=== PATIENT | male | born 1955 | race Caucasian/White ===

== ENCOUNTER → 2019-03-22 | Day surgery (SDC) | payer OTHER ==
[~2019-03-22] MED LIST: Lactated Ringers 1,000 ML IV SCH; Propofol 200 MG/20 ML SDV IV ONE
[2019-03-22 08:10] VITALS: BP 118/58
--- NOTE | 2019-03-25 09:52 | OR ---
DATE OF OPERATION: 03/22/2019 PREOPERATIVE DIAGNOSIS: FOLLOWUP POLYPS. POSTOPERATIVE DIAGNOSIS: FOLLOWUP POLYPS. SURGEON: Jean Day MD PROCEDURE: DIAGNOSTIC COLONOSCOPY. ANESTHESIA: MAC via [employer]. COMPLICATIONS: None. SPECIMEN: None. FINDINGS: 1. Full-length colonoscopy. 2. Minimal sigmoid, rectosigmoid diverticulosis. 3. No polyp recurrence. RECOMMENDATIONS: Followup colonoscopy in seven years. INDICATIONS: The patient has two prior history of polyps being removed. He is due for a five-year followup at this point. DESCRIPTION OF PROCEDURE: The patient was prepped and draped, placed in the left lateral decubitus position. A lubricated Olympus colonoscope was inserted and easily advanced to the cecum. The patient had a lot of stool down in the cecal pouch, but we were able to irrigate most of this, had an adequate view of the backside of the valve, could not see into the pouch very easily. Upon withdrawal, the ascending and transverse colons were completely benign. Throughout the descending and entire sigmoid, I could find no sign of polyps, mass, ulceration, bleeding sites, vascular abnormalities, or signs of colitis. There were a few scattered diverticula, but very minimal in any severity, extending from the mid sigmoid down to the rectosigmoid junction. The rectal vault was benign. Retroflexion showed no perianal lesions. Air was suctioned and scope removed without complication. HENRIETTA/MYNOR /[id number]
== END ==
LOC: CC.SDS 06:28
PROVIDERS: ATTEND Family Medicine
DX: Z12.11 Encounter for screening for malignant neoplasm of colon (principal); K57.30 Diverticulosis of large intestine without perforation or abscess without bleeding; K21.9 Gastro-esophageal reflux disease without esophagitis; I10 Essential (primary) hypertension; E03.9 Hypothyroidism, unspecified; E53.8 Deficiency of other specified B group vitamins; E78.00 Pure hypercholesterolemia, unspecified; E55.9 Vitamin D deficiency, unspecified; R73.03 Prediabetes; G89.29 Other chronic pain; M25.511 Pain in right shoulder; M50.90 Cervical disc disorder, unspecified, unspecified cervical region; M19.90 Unspecified osteoarthritis, unspecified site; N40.0 Benign prostatic hyperplasia without lower urinary tract symptoms; Z86.010 Personal history of colon polyps; Z79.82 Long term (current) use of aspirin; Z79.1 Long term (current) use of non-steroidal anti-inflammatories (NSAID); Z79.899 Other long term (current) drug therapy
CPT/HCPCS: 45378; J2704; J7120

== ENCOUNTER → 2020-03-27 | Day surgery (SDC) | payer BC ==
[~2020-03-27] MED LIST changes: +fentaNYL 100 MCG/2 ML SDV IV ONE
[2020-03-27 10:12] VITALS: BP 113/66; PULSE 57
--- NOTE | 2020-03-27 16:43 | OR ---
DATE OF OPERATION: 03/27/2020 PREOPERATIVE DIAGNOSIS: 1. GASTROESOPHAGEAL REFLUX DISEASE. 2. CRICOPHARYNGEAL DYSPHAGIA. POSTOPERATIVE DIAGNOSIS: 1. GASTROESOPHAGEAL REFLUX DISEASE. 2. CRICOPHARYNGEAL DYSPHAGIA. SURGEON: Jean Day MD PROCEDURE: DIAGNOSTIC EGD WITH BIOPSY X1, KALA. ANESTHESIA: MAC. COMPLICATIONS: None. SPECIMEN: 1. Duodenal bulb biopsy x1. 2. Antral KALA. FINDINGS: 1. Full-length EGD. 2. Spontaneous reflux without hernia, distal esophagitis, stricturing ulceration, or Wallace's changes. 3. Villous atrophy, duodenal bulb. PLAN: Recommend trial of proton pump therapy to improve reflux and likely improve the patient's dysphagia. Secondary option including cricopharyngeal treatments specifically. INDICATIONS: The patient has been having some issues with reflux, starting to have some occasional feelings of dysphagia in the cricopharyngeal region. Marquis Garza evaluated and recommended diagnostic EGD. He was given Protonix empirically, he has not yet started that. DESCRIPTION OF PROCEDURE: The patient was prepped and draped, placed in the left lateral decubitus position. A lubricated Olympus gastroscope was inserted over bite, advanced to cricopharyngeal area which is prominent and easily intubated into the esophagus. The esophageal lining was benign in its entire course. The Z-line was crisp and sharp at 40 cm. Spontaneous reflux is seen, but no distal esophagitis, stricturing, ulceration, or Wallace's changes. There was no hiatal hernia present. The scope was advanced into the stomach, through the pylorus, and into the second portion of the duodenum. This was benign. The duodenal bulb had some villous atrophy. A biopsy was taken. The scope was brought back into the stomach and retroflexed. The upper fundus and cardia were unremarkable. Upon straightening, the rest of the fundus and antrum showed no signs of peptic ulcer disease, polyp, mass, or otherwise. A CLOtest was obtained. Air was suctioned from the stomach. The scope was removed without any complication. HENRIETTA/MYNOR /[id number]
== END ==
LOC: CC.SDS 08:29
PROVIDERS: ATTEND Family Medicine
DX: K21.9 Gastro-esophageal reflux disease without esophagitis (principal); R13.14 Dysphagia, pharyngoesophageal phase; K31.89 Other diseases of stomach and duodenum; I10 Essential (primary) hypertension; E03.9 Hypothyroidism, unspecified; E78.00 Pure hypercholesterolemia, unspecified; E53.8 Deficiency of other specified B group vitamins; R73.03 Prediabetes; Z79.899 Other long term (current) drug therapy; Z79.82 Long term (current) use of aspirin; Z79.890 Hormone replacement therapy
CPT/HCPCS: 43239; 87081; J2704; J3010; J7120